=== PATIENT | male | born 1935 | race Caucasian/White ===

== ENCOUNTER 2016-06-03 08:42 | Emergency (ER) | payer MEDICARE, BC ==
[~2016-06-03] VITALS: Ht 167.6 cm; Wt 63.6 kg
[~2016-06-03 08:42] MED LIST: AMITRIPTYLINE H10 M1 PO; ASPIRIN E.C. 8181 MG PO; ATORVASTATIN; HCTZ; HCTZ 25MG TAB25 MG PO; LIPITOR 10MG10 MG PO; TRANDATE 100MG100 MG PO
[2016-06-03 08:47] VITALS: BP 151/82
[2016-06-03 09:45] LABS: PH 6 (5-8); SQUAMOUS EPITHELIAL None Seen /hpf; URINE APPEARANCE Clear; URINE BACTERIA None Seen /hpf; URINE BILIRUBIN Negative (NEGATIVE); URINE BLOOD Negative (NEGATIVE); URINE COLOR Straw; URINE GLUCOSE Negative (NEGATIVE); URINE KETONE Negative (NEGATIVE); URINE RBC None Seen /hpf; URINE UROBILINOGEN Negative (NEGATIVE); URINE WBC 0-2 /hpf
[2016-06-03] MEDS ORDERED: PREDNISONE20 MG PO (09:47)
[2016-06-03 09:55] VITALS: PULSE 73; TEMP 97
[2016-06-17] MEDS ORDERED: AMITRIPTYLINE H25 M1 PO (08:15)
[2016-06-17] MEDS ORDERED: VITAMIN D 1001000 IU PO (08:16)
== END 2016-06-03 10:01 | disposition home or self-care (01) ==
LOC: COL.ER 08:42
PROVIDERS: Physician Assistant
DX: M54.41 Lumbago with sciatica, right side (principal); I10 Essential (primary) hypertension; F17.220 Nicotine dependence, chewing tobacco, uncomplicated

== ENCOUNTER → 2016-06-20 | Outpatient (CLI) | payer MEDICARE, BC ==
[~2016-06-20] VITALS: Ht 167.6 cm; Wt 62.8 kg
[~2016-06-20] MED LIST changes: +AMITRIPTYLINE H25 M1 PO; +PREDNISONE20 MG PO; +VITAMIN D 1001000 IU PO
[2016-06-20 13:29] VITALS: BP 138/80; PULSE 63
[2016-06-20 15:15] VITALS: BP 166/87; PULSE 65
== END ==
LOC: COL.RAD 12:57
DX: M54.16 Radiculopathy, lumbar region (principal); M54.41 Lumbago with sciatica, right side
CPT/HCPCS: J3301

== ENCOUNTER → 2016-10-11 | Outpatient (REF) | LOC: ZMSC 14:26 | DX: Z02.89 Encounter for other administrative examinations (principal) ==

== ENCOUNTER 2022-03-11 09:29 | Emergency (ER) | payer MEDICARE, BC ==
[~2022-03-11] VITALS: Ht 167.6 cm; Wt 59.1 kg
[2022-03-11 09:52] LABS: BASO % 0.3 % (0.0-2.0); EOS # 0.1 K/mm3 (0.0-0.7); EOS % 1.9 % (0.0-4.0); GRAN % 62.3 % (42.2-75.2); HEMATOCRIT 41.2 % (42.0-52.0); HEMOGLOBIN 13.9 g/dl (13.5-18.0); LYMPH # 1.8 K/mm3 (1.2-3.4); LYMPH % 28.1 % (20.0-51.0); MEAN CELL VOLUME 92 fl (80.0-100.0); MEAN CORPUSCULAR HEMOGLOBIN 31 pg (27-31); MEAN CORPUSCULAR HGB CONC 34 g/dl (33.0-37.0); MEAN PLATELET VOLUME 10.1 fl (7.4-10.4); MONO # 0.5 K/mm3 (0.1-0.6); MONO % 7.1 % (1.7-9.3); PLATELET COUNT 187 K/mm3 (130-400); REDCELL DISTRIBUTION WIDTH-CV 13.4 % (11.5-14.5)
[2022-03-11 10:07] LABS: ALBUMIN 3.6 gm/dL (3.4-4.8); BILIRUBIN,TOTAL 0.9 mg/dL (0.2-1.2); CALCIUM 9.4 mg/dL (8.4-10.2); CREATININE, serum 1.41 mg/dL (0.72-1.25); POTASSIUM 4.5 mmol/L (3.5-4.5); TOTAL PROTEIN 8.4 gm/dL (6.2-8.1)
[2022-03-11 10:16] LABS: TROPONIN-I 0.039 ng/mL (0.00-0.033)
[2022-03-11 10:25] LABS: PROTHROMBIN TIME 11.8 SECONDS (9.7-12.8)
[2022-03-11 10:27] LABS: PARTIAL THROMBOPLASTIN TIME 24.4 SECONDS (26.0-37.0)
[2022-03-11] MEDS ORDERED: AMITRIPTYLINE H10 M1 PO (11:06)
[2022-03-11 14:53] VITALS: BP 150/84; PULSE 96; TEMP 98.4
[2022-03-17] MEDS ORDERED: NORVASC 5MG5 MG/TAB PO (12:19)
[2022-03-17] MEDS ORDERED: PRINIVIL5 MG PO (12:20)
[2022-03-17] MEDS ORDERED: CEPHALEXIN500 M1 PO (12:20)
== END 2022-03-11 14:53 | disposition short-term general hospital (02) ==
LOC: COL.ER 09:29
PROVIDERS: Emergency Medicine
DX: I61.8 Other nontraumatic intracerebral hemorrhage (principal); R77.8 Other specified abnormalities of plasma proteins; R29.810 Facial weakness; R03.0 Elevated blood-pressure reading, without diagnosis of hypertension; Z87.891 Personal history of nicotine dependence
CPT/HCPCS: J1953; J7050; Q9967